=== PATIENT | male | born 1960 | race African-American/Black ===

== ENCOUNTER 2025-03-25 12:33 | Outpatient (REF) | payer BC, SELFPAY ==
--- NOTE | 2025-03-25 13:45 | CA_ITS ---
Transthoracic Echocardiogram Patient (Last, First, Middle): Fernando Adams, Gender: Male Date of : 1960 Age: 64 Procedure Date: 03/25/2025 Procedure Type: Transthoracic Echocardiogram Location: OP Height: 175.26 cm Weight: 94.35 kg BSA: 2.10 m2 Heart Rate: 102 bpm BP: 110 / 82 mmHg Activity Therapy Specialist: SB Referring MD: Abhinav Claire MD Manager Of Purchasing: Abhinav Claire MD Symptoms: Sinus tachycardia Study Quality: Good ECG Rhythm: Tachycardia Conclusions: - Normal left ventricular size and systolic function. The visually estimated ejection fraction is between 55-60%. - The basal inferior and basal inferoseptal segments are akinetic. - Normal right ventricular cavity size and systolic function. - There is no evidence of pericardial effusion. Findings Left Ventricle Normal left ventricular size and systolic function. The visually estimated ejection fraction is between 55-60%. There is evidence of regional wall motion abnormalities. Diastolic function is normal for age. There is moderate septal asymmetric hypertrophy. Wall Motion Rest Echo Findings The basal inferior and basal inferoseptal segments are akinetic. Right Ventricle Normal right ventricular cavity size and systolic function. Atria The left atrium is normal in size. The right atrium is normal in size. Aortic Valve There is a normal trileaflet aortic valve. There is no aortic valve stenosis. There is no aortic valve regurgitation. Mitral Valve The mitral valve appears normal. There is no mitral valve regurgitation. There is no mitral valve stenosis. Pulmonic Valve The pulmonic valve is normal. There is trace pulmonic valve regurgitation. Tricuspid Valve Normal tricuspid valve structure. There is no tricuspid valve regurgitation. Normal right atrial pressure. There is no evidence of pulmonary hypertension. Great Vessels All visible segments of the aorta are normal in size. Venous The inferior vena cava is normal in size and collapses greater than 50% with inspiration. Pericardium/Pleural There is no evidence of pericardial effusion. Measurements 2D Linear Measurements IVSd: 1.37 0.6-0.9/0.6-1.0 cm LVIDd: 3.92 3.9-5.3/4.2-5.9 cm LVIDd Index: 1.87 2.4-3.2/2.2-3.1 cm/m2 LVIDs: 2.74 2.0-3.6 cm LVPWd: 0.98 0.7-1.1 cm Ao Root: 3.50 2.1-3.5 cm LA Diam: 3.20 2.7-3.8/3.0-4.0 cm LAIDs Index: 1.52 1.5-2.3 cm/m2 LV Mass: 194.07 67-162/88-224 g LV Mass Index: 92.42 43-95/49-115 g/m2 LVOT Diam: 2.60 3.0+(-)1.3 cm 2D Systolic Function EF 4C: 56.30 >55% EF 2C: 44.40 >55% EF BiP: 50.90 >55% Mitral Valve MV Pk E: 0.44 MV PK A: 0.69 MV Decel Time: 153.00 E/A: 0.60 E'Lateral: 6.20 E'Medial: 5.66 E/E' Med: 7.80 E/E' Lat: 7.10 Aortic Valve AoV Pk Abilio: 1.05 AoV Pk Grad: 4.00 TARA: 3.94 LVOT LVOT Pk Abilio: 0.83 LVOT Mn Abilio: 0.62 LVOT VTI: 0.13 LVOT Pk Grad: 3.00 LVOT Mn Grad: 2.00 LVOT Diam: 2.60 LVOT Area: 5.31 Diastolic Function MV Pk E: 0.44 MV Pk A: 0.69 E/A: 0.60 E'Medial: 5.66 E/E' Med: 7.80 E' Laterial: 6.20 E/E' Lat: 7.10 Right Ventricle TVS' Abilio: 11.90 Tricuspid Valve RA Press: 3.00 Great Vessels Aorta Ao Root-2D: 3.50 2.0-3.7 cm Sinus of Valsalva: 3.50 2.0-3.5 cm Ao Asc: 3.70 2.1-3.4 cm Ao Arch: 3.20 Pulmonary Valve PV Pk Abilio: 0.91 Peak PV Grad: 3.00 Updated in Other Vendor System with Status of Final Abhinav Claire MD electronically signed on 03/26/2025 9:01:24 PM with status of Final
--- OUTSIDE RECORDS SUMMARY | 2025-03-25 14:18 | XMS_ITS ---
Author Name [facility] Organization Unknown Care Team Organization Name Specialty Phone Email Start Date End [facility] te [facility] of the Sample T[employer]or ([facility]) 09/12/2024
[2025-03-25 15:52] LABS: Lactate Dehydrogenase 162 U/L (118-273)
[2025-03-25 16:10] LABS: Erythrocyte Sedimentation Rate 2 MM/HR (0-15)
[2025-03-26 03:24] LABS: CRP High Sensitivity 0.4 mg/L
== END 2025-03-25 12:34 | disposition home or self-care (01) ==
LOC: HO.LAB 12:33
PROVIDERS: Visit Provider Internal Medicine Cardiovascular Disease
DX: R94.31 Abnormal electrocardiogram [ECG] [EKG] (principal); R00.0 Tachycardia, unspecified
CPT/HCPCS: 36415; 83615; 85652; 86141; 93005; 93306; Q9957

== ENCOUNTER 2025-03-25 12:33 | Outpatient (AMB) | payer BC, SELFPAY ==
--- NOTE | 2025-03-25 12:41 | MHC.OFFVIS ---
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 Recently he was getting palpitations and went to urgent care where he was noticed to be tachycardic in 120s and was sent to [facility] Emergency Department. He was noted to be in sinus tachycardia and underwent blood workup including troponin, thyroid profile and CBC. His workup was negative except for polycythemia which is a chronic thing in him. He has seen marine reporter in the past and does not have polycythemia vera reportedly. He does blood letting from time to time. He has been getting some night sweats. 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 He also has been getting some pressure-like feeling in his chest off and on. This is random. He is saying that he is under lot of stress at work and has lost some weight. [facility] Family History (Updated 03/25/25 @ 12:48 by Geneva Munson [facility]) Brother High blood pressure Social History (Updated 03/25/25 @ 12:48 by Geneva Munson CMA) Unable to assess alcohol history related to: Unable to respond Alcohol intake: never Patient Tobacco Use Status: Never used Tobacco Review of Systems Const Denies chills, Denies fatigue, Denies fever(s), Denies frequent falls, Denies weakness, Denies weight gain and Denies weight loss ENT Denies dizziness Card Denies chest pain, Reports leg edema, Denies lightheadedness, Reports palpitations, Reports dyspnea, Reports dyspnea on exertion and Reports orthopnea Resp Denies cough, Reports dyspnea and Reports dyspnea on exertion GI Denies bloating and Denies change in bowel habits Musc Denies muscle weakness, Denies numbness and Denies tingling Neuro Denies dizziness, Denies frequent falls, Denies numbness, Denies tingling and Denies weakness Endo Denies fatigue and Reports palpitations Physical Exam Vital Signs: Last Vital Signs Pulse 121 H 03/25/25 12:46 BP 110/82 03/25/25 12:46 BMI result Body Mass Index 30.8 GENERAL APPEARANCE: in no acute distress, pleasant. NECK: no carotid bruit, no jugular venous distention. SKIN: no suspicious lesions, warm and dry. HEART: no murmurs, regular rate and rhythm. Tachycardic. LUNGS: clear to auscultation bilaterally. ABDOMEN: soft, nontender. EXTREMITIES: no edema. PERIPHERAL PULSES: equal. NEUROLOGIC: No gross deficits, AAO X 3 Office Procedures EKG Details: Sinus tachycardia 121 beats per minute, rightward axis, inferior infarct, anterolateral infarct, QTC 445 milliseconds. [id number], Complete Assessment & Plan Assessment & Plan (1) Sinus tachycardia: Code(s): R00.0 - Tachycardia, unspecified Category: Medical (2) Abnormal ECG: Code(s): R94.31 - Abnormal electrocardiogram [ECG] [EKG] Category: Medical Plan Pleasant 64 year gentleman who is here for tachycardia. His EKGs showing sinus tachycardia but he has Q-waves in the anterior and inferior leads. He does not recall having any heart attacks in the past. We will check echocardiogram to rule out any he has previous infarction. We will also see if there is any cardiomyopathy or pericardial effusion to explain his sinus tachycardia. His thyroid profile is normal. He in fact is polycythemic rather than anemic and from time to time does blood letting. I have sent him for ESR which is normal and also checked an LDH level just to make sure that he does not have any hematologic issues like lymphoma because he has been getting night sweats. 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 I have reviewed his echocardiogram and overall his LV function is preserved. I will look at it anymore details. I think it is lisinopril can be stopped and he can be started on Toprol-XL 25 mg daily and this can be titrated up. I think he will need ischemic evaluation and I will arrange an exercise stress test for him once he is stabilized from heart rate point of view. He should be encouraged hydrate himself more frequently. Follow-up in few months. Thank you for allowing me to participate in the care of your patient. Please feel free to contact me if you have any questions. Orders: Orders CA echo transthorac w con Today R94.31 - Abnormal electrocardiogram [ECG] [EKG] Erythrocyte Sedimentation Rate Today R00.0 - Tachycardia, unspecified CRP High Sensitivity Today R00.0 - Tachycardia, unspecified Lactate Dehydrogenase Today R00.0 - Tachycardia, unspecified, R94.31 - Abnormal electrocardiogram [ECG] [EKG] Coding Level of Care Code New Pt Level 4 (61967) Diagnoses Sinus tachycardia R00.0 Abnormal ECG R94.31 CPT Codes EKG - CPT: 88358-[id number], Complete ([id number])
[2025-03-25 12:46] VITALS: BP 110/82; PULSE 121; BMI 30.8
== END 2025-03-25 13:23 | disposition home or self-care (01) ==
PROVIDERS: Visit Provider Internal Medicine Cardiovascular Disease
DX: R00.0 Tachycardia, unspecified (principal); R94.31 Abnormal electrocardiogram [ECG] [EKG]
CPT/HCPCS: 93010; 99204

== ENCOUNTER → 2025-05-11 10:25 | Outpatient (REF) | payer BC, SELFPAY ==
--- NOTE | 2025-05-11 10:27 | CA_ITS ---
Acquisition Time: 2025-05-11 11:16:48 Total Exercise Time: 00:06:59 Test Indications: Abn EKG Medications: Protocol: YESICA Max HR: 146 BPM 92% of Pred: 158 BPM Max BP: 162/84 mmHG Max Work Load: 8.5 METS Exercise stress test with exercise 6 mins 59 secs of Yesica Protocol, achieving 92% MPHR, with reports of SOB, no chest pain, with isolated PVCs, with normotensive response to exercise. Without any EKG changes meeting criteria for ischemia. In recovery, pt's breathing returned to baseline. Echo images obtained by tech at rest and post peak exercise. Definity contrast utilized. Test reviewed with Dr. Gaitan. Referred By: Abhinav Claire Electronically Signed By: Benny Hassan
== END ==
LOC: HO.CARD 10:25
PROVIDERS: Visit Provider Internal Medicine Cardiovascular Disease
DX: R94.31 Abnormal electrocardiogram [ECG] [EKG] (principal)
CPT/HCPCS: 93350; Q9957

== ENCOUNTER → 2025-05-11 10:27 | Outpatient (BNV) | payer BC, SELFPAY | DX: R94.31 Abnormal electrocardiogram [ECG] [EKG] (principal) | CPT/HCPCS: 93016; 93018; 93350; 93352 ==